=== PATIENT | male | born 1985 | race Caucasian/White ===

== ENCOUNTER 2022-08-10 08:03 | Emergency (ER) | payer OTHER ==
[2022-08-10] MEDS: Ondansetron 4 MG Tab.DIS PO ONE (09:12)
[2022-08-10 09:15] LABS: ANION GAP 14.7 mmol/L (5-15)
== END 2022-08-10 10:06 | disposition home or self-care (01) ==
LOC: VM.ED 08:03
DX: R42 Dizziness and giddiness (principal); R11.0 Nausea
CPT/HCPCS: 36415; 80048; 84484; 85025; 93005; 93010; 99284; A9270-GY